=== PATIENT | female | born 1965 | race African-American/Black ===

== ENCOUNTER → 2020-02-06 | Emergency (ER) | payer MEDICAID, OTHER ==
[~2020-02-06] VITALS: Ht 177.8 cm; Wt 72.6 kg
[2020-02-06 13:20] VITALS: BP 144/87
== END | disposition left against medical advice (07) ==
LOC: EDUNIT# 12:36 → ER 12:47 → EDBD 12:47
DX: M79.10 Myalgia, unspecified site (principal); Z53.21 Procedure and treatment not carried out due to patient leaving prior to being seen by health care provider